=== PATIENT | female | born 1960 | race Caucasian/White ===

== ENCOUNTER 2016-11-13 10:26 | Observation (INO) | payer OTHER ==
[2016-11-13] MEDS ORDERED: HYDROmorphONE/DILAUDID 1 MG/ML SYR IVP ONE (10:42)
[2016-11-13] MEDS ORDERED: NS 1,000 ML IV ONE (10:42)
[2016-11-13] MEDS ORDERED: ONDANSETRON 4 MG/2 ML VIAL IVP ONE (10:42)
--- NOTE | 2016-11-13 10:44 | EDPHY ---
H & P Stated Complaint: generalized abd pain/now migrated to RLQ/ Time Seen by Provider: 11/13/16 10:29 HPI/ROS: CHIEF COMPLAINT: Right lower quadrant abdominal pain HISTORY OF PRESENT ILLNESS: Patient complains of abrupt onset of right lower quadrant abdominal pain. It started as generalized pain around 2:00 a.m. and quickly localized to the right lower quadrant. It is a constant pain. Severe pain. Worse with palpation, movement Valsalva. Some improvement lying on the left side. No fever. No diaphoresis. Nausea but no vomiting. She does feel anorexic with this. No trauma or injury. No previous abdominal diagnoses or surgeries. She is postmenopausal. She does have a history of ovarian cysts in the past. She feels this is significantly different from that pain. No other associated complaints or modifying factors. In p.o. solid since last night. She had a small amount of tea with no milk or cream minute at 7:30 a.m. REVIEW OF SYSTEMS: Ten systems reviewed and are negative unless otherwise noted in the HPI PAST MEDICAL HISTORY: Drug allergies, allergic rhinitis, migraine headaches SOCIAL HISTORY: Nonsmoker FAMILY HISTORY: Noncontributory EXAMINATION General Appearance: Alert, no distress Head: normocephalic, atraumatic Eyes: Pupils equal and round, no conjunctival pallor or injection ENT, Mouth: Mucous membranes moist Neck: Normal inspection, supple, non-tender Respiratory: Lungs are clear to auscultation. No wheezing, rhonchi or crackles Cardiovascular: Regular rate and rhythm. No murmur. Pulses intact distally Gastrointestinal: Abdomen is soft. No distention or rigidity. Tenderness in the right lower quadrant at McBurney's point. Guarding the right lower quadrant. Negative Rovsing. Negative tympany. No CVA tenderness. Back: non-tender, no bony abnormalities Neurological: A&O, nonfocal, normal gait Skin: Warm and dry, no rash. No petechiae or purpura Extremities: Nontender, no pedal edema Psychiatric: Mood and affect normal DIFFERENTIAL DIAGNOSES: Including but not limited to acute appendicitis, ureterolithiasis, colitis, cystitis, mesenteric adenitis, duodenitis, pancreatitis, cholelithiasis, ovarian cyst, ovarian torsion MDM: 10:44 a.m. Acute right lower quadrant abdominal pain with examination that suggest acute appendicitis. She is in no acute distress but in obvious discomfort. I have ordered an I-STAT verify her creatinine to expedite her CT scan. She is postmenopausal thus I have not ordered an HCG. 11:00 a.m. Creatinine has been verified 0.9. CT techs have been notified. Proceed with CT scan of the abdomen and pelvis. Laboratory studies pending. IV fluid resuscitation, IV pain medication and antiemetics are being administered. 11:15 a.m. Notified by RN that the patient has an IV contrast possible allergy. I discussed this with her. It was not an anaphylactic reaction. It was intolerance with some rash. We discussed at length the risks, benefits and alternatives. She has decided on an ultrasound before proceeding with CT scan or pre treatment. I have ordered ultrasound of the appendix. We discussed that should this not visualize the appendix to be inconclusive we will proceed with CT scan with pretreatment. She is comfortable with this plan. She remains awake and alert, no acute distress. Vital signs stable. Pain medication is helping her symptoms 11:[address] Cuadra and, radiologist. The appendix is nonvisualized. There is a cystic structure in the lower abdomen that is not well visualized with ultrasound. CT scan of the abdomen and pelvis will be obtained. Due to her intolerance of the IV contrast in the past we will pre treat. This was not an anaphylactic reaction. She did not have any rash. I have re-evaluated her at this time. She is in no acute distress. Her pain persist. 1:25 p.m. Notified by radiologist Dr. Cuadra. There is evidence of acute diverticulitis without perforation or abscess. 1:35 p.m. I have re-evaluated the patient. She still complains of pain. We discussed the nature of her diverticulitis. We discussed inpatient treatment for his outpatient care. I do not feel she is stable for discharge home at this time as her pain level is not tolerable, nor is she ambulatory without significant pain. I will contact the hospitalist for admission for inpatient care. She has tolerated the CT scan without any reaction of any kind. 1:40 p.m. I discussed the case with hospitalist Nissa Aviles. She will admit the patient to Dr. Rodrigues. She recommends that we start on IV ertapenem. Patient is admitted in stable condition. She is agreeable with this plan. SUPERVISION: Patient was evaluated in conjunction with the supervising physician. Please see their note for details. Source: Patient, Family Exam Limitations: No limitations - Personal History Current Tetanus/Diphtheria Vaccine: Yes - Medical/Surgical History Hx Asthma: No Hx Chronic Respiratory Disease: No Hx Diabetes: No Hx Cardiac Disease: No Hx Renal Disease: No Hx Cirrhosis: No Hx Alcoholism: No Hx HIV/AIDS: No Hx Splenectomy or Spleen Trauma: No Other PMH: denies - Social History Smoking Status: Never smoked Constitutional: Initial Vital Signs Temperature (C) 97.9 F 11/13/16 10:30 Heart Rate 87 11/13/16 10:30 Respiratory Rate 16 11/13/16 10:30 Blood Pressure 123/57 H 11/13/16 10:30 O2 Sat (%) 98 11/13/16 10:30 O2 Delivery Mode Room Air O2 (L/minute) 1.5 Allergies/Adverse Reactions: egg [eggs] Allergy (Verified 11/13/16 10:30) iodine Allergy (Verified 11/13/16 10:30) Contrast Dye Allergy (Uncoded 11/13/16 15:30) Home Medications: Medication Instructions Recorded Fexofenadine HCl [Sunita Allergy] 60 mg PO DAILY PRN 11/13/16 Fluticasone Nasal [Flonase Nasal 1 sprays NASAL DAILY PRN 11/13/16 [place] (RX)] Ibuprofen [Motrin (*)] 400 mg PO Q6 PRN 11/13/16 metroNIDAZOLE [Metrogel] 1 yang TP DAILY 11/13/16 Medical Decision Making - Diagnostics Imaging Results: Imaging Impressions Abdomen CT 11/13/16 10:43 Impression: 1. Sigmoid diverticulitis without perforation or abscess. 2. Benign-appearing 5 cm right pelvic cyst. This appears discrete from the right ovary, however, could represent a paraovarian cyst or mesenteric duplication cyst. Recommend follow up ultrasound in one year. 3. Moderate stool in the colon. 4. Additional findings as above. Findings discussed with Rashard Prasad on 11/13/2016 at 1322 hours. Abdomen Ultrasound 11/13/16 11:15 Impression: 1. Nonvisualization of the appendix. 2. Indeterminate, benign-appearing 5.5 cm fluid collection right lower quadrant which could represent a mesenteric cyst, lymphocele, or other etiology. Findings discussed with Rashard Prasad PA-C, 11/13/2016, at 1153 hours. - Data Points Laboratory Results: Laboratory Results 11/13/16 10:50 11/13/16 10:50 11/13/16 11/13/16 11/13/16 12:00 10:51 10:50 WBC RBC Hgb POC Hgb 15.3 gm/dL gm/dL (12.6-16.3) Hct POC Hct 45 % % (38-47) MCV MCH MCHC RDW Plt Count MPV Neut % (Auto) Lymph % (Auto) [place] % (Auto) Eos % (Auto) Baso % (Auto) Nucleat RBC Rel Count Absolute Neuts (auto) Absolute Lymphs (auto) Absolute Monos (auto) Absolute Eos (auto) Absolute Basos (auto) Absolute Nucleated RBC Immature Gran % Immature Gran # PT INR APTT POC Sodium 143 mEq/L mEq/L (134-144) Sodium 143 mEq/L mEq/L (134-144) POC Potassium 3.9 mEq/L mEq/L (3.3-5.0) Potassium 4.2 mEq/L mEq/L (3.5-5.2) POC Chloride 107 mEq/L mEq/L (97-110) Chloride 111 mEq/L H mEq/L (97-110) Carbon Dioxide 18 mEq/l L mEq/l (22-31) Anion Gap 14 mEq/L mEq/L (8-16) POC BUN 10 mg/dL mg/dL (7-23) BUN 11 mg/dL mg/dL (7-23) Creatinine 0.8 mg/dL mg/dL (0.6-1.0) POC Creatinine 0.9 mg/dL mg/dL (0.6-1.0) Estimated GFR > 60 Glucose 83 mg/dL mg/dL (70-100) POC Glucose 88 mg/dL mg/dL (70-100) Calcium 9.5 mg/dL mg/dL (8.5-10.4) Total Bilirubin 1.0 mg/dL mg/dL (0.1-1.4) Conjugated Bilirubin 0.2 mg/dL mg/dL (0.0-0.5) Unconjugated Bilirubin 0.8 mg/dL mg/dL (0.0-1.1) AST 28 IU/L IU/L (14-46) ALT 32 IU/L IU/L (9-52) Alkaline Phosphatase 79 IU/L IU/L (38-126) Total Protein 7.4 g/dL g/dL (6.3-8.2) Albumin 4.4 g/dL g/dL (3.5-5.0) Lipase 77.0 IU/L IU/L (23-300) Urine Color YELLOW Urine Appearance CLEAR Urine pH 7.0 (5.0-7.5) Ur Specific [place] 1.009 (1.002-1.030) Urine Protein NEGATIVE (NEGATIVE) Urine Ketones NEGATIVE (NEGATIVE) Urine Blood 1+ H (NEGATIVE) Urine Nitrate NEGATIVE (NEGATIVE) Urine Bilirubin NEGATIVE (NEGATIVE) Urine Urobilinogen NEGATIVE EU EU (0.2-1.0) Ur Leukocyte Esterase TRACE H (NEGATIVE) Urine RBC 1-3 /hpf /hpf (0-3) Urine WBC 1-3 /hpf /hpf (0-3) Ur Epithelial Cells TRACE /lpf /lpf (NONE-1+) Urine Glucose NEGATIVE (NEGATIVE) 11/13/16 11/13/16 10:50 10:50 WBC 10.16 10^3/uL H 10^3/uL (3.80-9.50) RBC 4.91 10^6/uL 10^6/uL (4.18-5.33) Hgb 14.9 g/dL g/dL (12.6-16.3) POC Hgb Hct 42.6 % % (38.0-47.0) POC Hct MCV 86.8 fL fL (81.5-99.8) MCH 30.3 pg pg (27.9-34.1) MCHC 35.0 g/dL g/dL (32.4-36.7) RDW 12.3 % % (11.5-15.2) Plt Count 207 10^3/uL 10^3/uL (150-400) MPV 9.1 fL fL (8.7-11.7) Neut % (Auto) 81.5 % H % (39.3-74.2) Lymph % (Auto) 12.1 % L % (15.0-45.0) [place] % (Auto) 5.5 % % (4.5-13.0) Eos % (Auto) 0.3 % L % (0.6-7.6) Baso % (Auto) 0.3 % % (0.3-1.7) Nucleat RBC Rel Count 0.0 % % (0.0-0.2) Absolute Neuts (auto) 8.28 10^3/uL H 10^3/uL (1.70-6.50) Absolute Lymphs (auto) 1.23 10^3/uL 10^3/uL (1.00-3.00) Absolute Monos (auto) 0.56 10^3/uL 10^3/uL (0.30-0.80) Absolute Eos (auto) 0.03 10^3/uL 10^3/uL (0.03-0.40) Absolute Basos (auto) 0.03 10^3/uL 10^3/uL (0.02-0.10) Absolute Nucleated RBC 0.00 10^3/uL 10^3/uL (0-0.01) Immature Gran % 0.3 % % (0.0-1.1) Immature Gran # 0.03 10^3/uL 10^3/uL (0.00-0.10) PT 13.2 SEC SEC (12.0-15.0) INR 1.01 (0.83-1.16) APTT 26.4 SEC SEC (23.0-38.0) POC Sodium Sodium POC Potassium Potassium POC Chloride Chloride Carbon Dioxide Anion Gap POC BUN BUN Creatinine POC Creatinine Estimated GFR Glucose POC Glucose Calcium Total Bilirubin Conjugated Bilirubin Unconjugated Bilirubin AST ALT Alkaline Phosphatase Total Protein Albumin Lipase Urine Color Urine Appearance Urine pH Ur Specific [place] Urine Protein Urine Ketones Urine Blood Urine Nitrate Urine Bilirubin Urine Urobilinogen Ur Leukocyte Esterase Urine RBC Urine WBC Ur Epithelial Cells Urine Glucose Medications Given: Discontinued Medications Diphenhydramine HCl (Benadryl Injection) 50 mg IVP EDNOW ONE Stop: 11/13/16 12:03 Last Admin: 11/13/16 12:09 Dose: 50 mg Hydromorphone HCl (Dilaudid) 0.5 mg IVP EDNOW ONE Stop: 11/13/16 10:43 Last Admin: 11/13/16 10:58 Dose: 0.5 mg Sodium Chloride (Ns) 1,000 mls @ 0 mls/hr IV EDNOW ONE; Wide Open PRN Reason: Protocol Stop: 11/13/16 10:43 Last Admin: 11/13/16 10:59 Dose: 1,000 mls Methylprednisolone Sodium Succinate (Solu-Medrol) 125 mg IVP EDNOW ONE Stop: 11/13/16 12:01 Last Admin: 11/13/16 12:09 Dose: 125 mg Ondansetron HCl (Zofran) 4 mg IVP EDNOW ONE Stop: 11/13/16 10:43 Last Admin: 11/13/16 11:00 Dose: 4 mg Point of Care Test Results: 11/13/16 10:51 POC Sodium 143 POC Potassium 3.9 POC Chloride 107 POC BUN 10 POC Creatinine 0.9 POC Glucose 88 Departure - Departure Disposition: [facility] Inpatient Acute Clinical Impression: Acute diverticulitis, Acute abdominal pain Condition: Good Instructions: Diverticulitis (ED) Referrals: Kate Tuttle NP [Primary Care Provider] - As per Instructions
[2016-11-13] MEDS ORDERED: IOPAMIDOL (ISOVUE-300) 100 ML BTL ONE (11:05)
[2016-11-13] MEDS ORDERED: methylPREDNISolone SOD SUCC 125 MG/2 ML VIAL ONE (11:07)
[2016-11-13 11:10] LABS: % IMMATURE GRANULYOCYTES 0.3 % (0.0-1.1); ABSOLUTE IMMATURE GRANULOCYTES 0.03 10^3/uL (0.00-0.10); ADD DIFF? NO; ADD MORPH? NO; ADD SCAN? NO; ATYPICAL LYMPHOCYTE FLAG 10 (0-99); FRAGMENT RBC FLAG 0 (0-99); HEMATOCRIT 42.6 % (38.0-47.0); HEMOGLOBIN 14.9 g/dL (12.6-16.3); LEFT SHIFT FLG 0 (0-99); LIPEMIA HEMOLYSIS FLAG 90 (0-99); MEAN CELL HEMOGLOBIN 30.3 pg (27.9-34.1); MEAN CELL VOLUME 86.8 fL (81.5-99.8); MEAN PLATELET VOLUME 9.1 fL (8.7-11.7); PLATELET CLUMPS FLAG 0 (0-99); PLATELET COUNT 207 10^3/uL (150-400); RED BLOOD CELL COUNT 4.91 10^6/uL (4.18-5.33); RED CELL DISTRIBUTION WIDTH 12.3 % (11.5-15.2)
[2016-11-13 11:14] LABS: INR 1.01 (0.83-1.16); PROTIME(PATIENT) 13.2 SEC (12.0-15.0)
[2016-11-13 11:15] LABS: APTT 26.4 SEC (23.0-38.0)
[2016-11-13 11:26] LABS: ALANINE AMINOTRANSFERASE 32 IU/L (9-52); ALBUMIN 4.4 g/dL (3.5-5.0); ALKALINE PHOSPHATASE 79 IU/L (38-126); ANION GAP 14 mEq/L (8-16); ASPARTATE AMINOTRANSFERASE 28 IU/L (14-46); BILIRUBIN-CONJUGATED 0.2 mg/dL (0.0-0.5); BILIRUBIN-UNCONJUGATED 0.8 mg/dL (0.0-1.1); CALCIUM 9.5 mg/dL (8.5-10.4); CARBON DIOXIDE 18 mEq/l (22-31); CHLORIDE 111 mEq/L (97-110); CREATININE 0.8 mg/dL (0.6-1.0); GLOMERULAR FILTRATION RATE > 60; GLUCOSE 83 mg/dL (70-100); POTASSIUM 4.2 mEq/L (3.5-5.2); SODIUM 143 mEq/L (134-144); TOTAL PROTEIN 7.4 g/dL (6.3-8.2)
[2016-11-13] MEDS ORDERED: methylPREDNISolone SOD SUCC 125 MG/2 ML VIAL IVP ONE (12:00)
[2016-11-13 12:47] LABS: COLOR YELLOW; LEUKOCYTE ESTERASE,URINE TRACE (NEGATIVE); NITRITE,URINE NEGATIVE (NEGATIVE)
[2016-11-13] MEDS ORDERED: ERTAPENEM 1 GM in NS 100 ML IV ONE (13:39)
[2016-11-13] MEDS ORDERED: ONDANSETRON 4 MG/2 ML VIAL IVP PRN (15:58)
[2016-11-13] MEDS ORDERED: ACETAMINOPHEN 325 MG TAB PO PRN (15:58)
[2016-11-13] MEDS ORDERED: OXYCODONE/APAP 5/325 TAB PO PRN (15:58)
[2016-11-13] MEDS ORDERED: ZOLPIDEM TARTRATE 5 MG TAB PO PRN (15:58)
[2016-11-13] MEDS ORDERED: FLUTICASONE NASAL 120 SPRAYS/16 GM MDI EACHNARE PRN (16:01)
[2016-11-13] MEDS ORDERED: [UNRECOGNIZED DRUG - REMARK] PO PRN (16:01)
--- NOTE | 2016-11-13 16:11 | PDGENHP ---
History and Physical History and Physical: HISTORY AND PHYSICAL CC: Abdominal pain HISTORY: This patient woke up at 2 o'clock this morning with right lower quadrant abdominal pain that persists at this time. The pain has been moderately severe , crampy but constant. It is not necessary been aggravated by anything in particular and she does not feel it in the back, groin, legs. Has been no fever symptoms no nausea or vomiting no change in bowel function with last bowel movement yesterday morning. She denies shortness of breath, ocular symptoms, mucosal symptoms, rashes, joint or muscle pain. She has never had symptoms like this before she has no history of abdominal surgery or digestive illness per se. She did have 1 history of a episode of ovarian cyst rupture which felt quite different from this in terms of the nature of the pain and the location. She admits to feeling somewhat fatigued for 2 or 3 days prior to onset of these symptoms today. 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 MEDICATIONS: The patients list has been reconciled by our clinical pharmacist in the EMR. I have reviewed the list and ordered appropriate medicines. PHYSICAL EXAMINATION: Vital Signs:Stable without fever Examination: General: alert, oriented, good mentation, relaxed Skin: warm, dry, good color, no rash HEENT: normal Neck: no mass or jvd Resps: relaxed Lungs: clear breath sounds Heart: regular, no murmur Abdomen: soft, nondistended, +BS, some right lower quadrant and mid lower abdominal tenderness without guarding or rebound, no palpable abnormality and no mass Upper Extremities: normal Lower Extremities: no edema, warm No Bleeding or bruising Neurologic: normal speech/language, normal automotive hardware engineer, no focal weakness IV site: looks normal LABORATORY DATA: mild white blood cell count elevation otherwise normal RADIOLOGY STUDIES: CT scan of abdomen done in the ER with contrast, my personal review and interpretation of images: There is some inflammatory change in mesenteric fat in area adjacent to some diverticular changes in the colon. There is no abscess or free air. I am unable to spot the appendix but the radiologist as found the appendix and has stated it is unremarkable ASSESSMENT: - acute diverticulitis is the presumptive diagnosis in this woman who has known diverticulosis from a previous colonoscopy 5 years ago - at this time there are no signs of complications. Most likely she will respond quite well to antibiotics. At this point because of difficult pain control will treat her here in the hospital on obs status PLANS: clear liquid diet IV fluids Continue with IV antibiotics this time Pain management
[2016-11-13] MEDS: NS 1,000 ML IV SCH (16:34)
[2016-11-13] MEDS: IBUPROFEN 200 MG TAB PO PRN (16:58)
[2016-11-13] MEDS: METRONIDAZOLE 0.75 % 45 GEL TP SCH (21:18)
[2016-11-14] MEDS: ENOXAPARIN 40 MG/0.4 ML SYR SC SCH (07:45)
[2016-11-14] MEDS: METRONIDAZOLE 0.75 % 45 GEL TP SCH (08:34)
[2016-11-14] MEDS ORDERED: ERTAPENEM 1 GM in NS 100 ML IV SCH (09:00)
--- NOTE | 2016-11-14 09:07 | PDDCSUM ---
Discharge Summary Discharge Summary: DISCHARGE DIAGNOSES: -acute diverticulitis is the presumptive diagnosis with history of known endoscopically confirmed diverticulosis; no evidence of perforation or abscess PROCEDURES: CT scan of abdomen pelvis HOSPITAL COURSE SUMMARY: This patient came in with lower abdominal pain and tenderness elevated white blood cell count. CT scan was suggestive of diverticulosis so this is a presumptive diagnosis as there are no other causative findings. The patient was admitted and treated with IV hydration, antibiotics, and a clear liquid diet. She responded well with significant improvement in pain and tenderness over night. There is no peritoneal signs on examination today. She has had no fevers. She is having normal bowel function. No nausea vomiting. At this point she is stable for discharge to continue with outpatient treatment follow up with her primary care physician. PENDING TEST RESULTS: None MEDICATION CHANGES: Cipro 500 mg twice daily and Flagyl 250 mg four times daily for another week FOLLOW-UP PLAN: With primary care physician next week She is instructed to have a clear liquid diet for another 2 days followed by a starts his diet and slowly return to normal diet as tolerated. She is instructed to avoid seeds, eat legumes only when well cooked, and be very cautious about eating nuts Greater than 35 minutes bedside and care coordination time today
[2016-11-14] MEDS: NS 1,000 ML IV SCH (13:56)
--- NOTE | 2016-11-14 19:50 | HOSPPROG ---
Hospitalist Progress Note Assessment/Plan: The patient, approx 30 mins after my visit this am began to have increased abdominal pain after taking some po fluids. This worsened over the next 2 hours and persisted another 2 hours. Thru the rest of the day she has had ongoing milder cramps and nausea, no appetite. No fever and vitals have remained ok. Exam remains w tenderness but not peritonitis. Will need to keep her here overnight for IV abx and fluids so will change to inpatient Objective: Vital Signs Temp Pulse Resp BP Pulse Ox 37.3 C 60 16 117/58 L 94 11/14/16 15:09 11/14/16 15:09 11/14/16 15:09 11/14/16 15:09 11/14/16 15:09 11/13/16 11/14/16 11/15/16 06:59 06:59 06:59 Intake Total 1238 Balance 1238 PT 13.2 SEC (12.0-15.0) 11/13/16 10:50 INR 1.01 (0.83-1.16) 11/13/16 10:50 ICD10 Worksheet Patient Problems: Problems Problem Status Onset Acute abdominal pain Acute Acute diverticulitis Acute
[2016-11-14] MEDS ORDERED: CALCIUM CARBONATE 500 MG CHEWABLE TAB PO PRN (20:00)
[2016-11-14] MEDS: SIMETHICONE 80 MG TAB CHEW PO SCH (20:21)
[2016-11-15 00:40] VITALS: RESP 20
[2016-11-15] MEDS: IBUPROFEN 200 MG TAB PO PRN (05:02)
[2016-11-15] MEDS ORDERED: CETIRIZINE 10 MG TAB PO PRN (08:21)
[2016-11-15] MEDS: SIMETHICONE 80 MG TAB CHEW PO SCH ×2 (08:57→13:30)
[2016-11-15] MEDS: ENOXAPARIN 40 MG/0.4 ML SYR SC SCH (08:57)
[2016-11-15] MEDS ORDERED: CIPROFLOXACIN 500 MG TAB PO SCH (10:00)
[2016-11-15] MEDS: METRONIDAZOLE 0.75 % 45 GEL TP SCH (11:08)
[2016-11-15] MEDS ORDERED: metroNIDAZOLE 250 MG TAB PO SCH (12:00)
[2016-11-15 15:15] VITALS: BP 140/74; PULSE 60; TEMP 98.7; O2SAT 94
--- NOTE | 2016-11-15 15:52 | PDDCSUM ---
Discharge Summary Discharge Summary: DISCHARGE DIAGNOSES: -acute diverticulitis is the presumptive diagnosis with history of known endoscopically confirmed diverticulosis; no evidence of perforation or abscess PROCEDURES: CT scan of abdomen pelvis HOSPITAL COURSE SUMMARY: This patient came in with lower abdominal pain and tenderness elevated white blood cell count. CT scan was suggestive of diverticulosis so this is a presumptive diagnosis as there are no other causative findings. The patient was admitted and treated with IV hydration, antibiotics, and a clear liquid diet. She responded well with significant improvement in pain and resolution of tenderness. There is no peritoneal signs on examination today. She has had no fevers. She is having normal bowel function. No nausea vomiting. At this point she is stable for discharge to continue with outpatient treatment follow up with her primary care physician. PENDING TEST RESULTS: None MEDICATION CHANGES: Cipro 500 mg twice daily and Flagyl 250 mg four times daily for another week FOLLOW-UP PLAN: With primary care physician next week She is instructed to have a clear liquid diet for another day followed by a starch diet and slowly return to normal diet as tolerated. She is instructed to avoid seeds, eat legumes only when well cooked, and be very cautious about eating nuts
== END 2016-11-15 16:29 | disposition home or self-care (01) ==
LOC: INTOOBSV 13:49 → F3E 15:13
PROVIDERS: ADMIT Internal Medicine; ATTEND Internal Medicine
DX: K57.32 Diverticulitis of large intestine without perforation or abscess without bleeding (principal); N94.89 Other specified conditions associated with female genital organs and menstrual cycle; K59.00 Constipation, unspecified; Z82.49 Family history of ischemic heart disease and other diseases of the circulatory system
CPT/HCPCS: 74177; 76705; 93971; 96365; 96375; 99285; G0378; 82947-QW; J1170; J1200; J1335; J1650; J2405; Q9967

== ENCOUNTER → 2017-03-10 | Outpatient (CLI) | payer OTHER | LOC: BMCIMAGING 07:52 | PROVIDERS: ATTEND Nurse Practitioner Adult Health | DX: Z12.31 Encounter for screening mammogram for malignant neoplasm of breast (principal) | CPT/HCPCS: G0202 ==

== ENCOUNTER → 2017-04-15 | Outpatient (CLI) | payer OTHER | LOC: BMCIMAGING 09:59 | PROVIDERS: ATTEND Family Medicine | DX: S69.92XA Unspecified injury of left wrist, hand and finger(s), initial encounter (principal) ==

== ENCOUNTER → 2018-04-12 | Outpatient (CLI) | payer OTHER | LOC: BMCIMAGING 07:27 | DX: Z12.31 Encounter for screening mammogram for malignant neoplasm of breast (principal) ==